=== PATIENT | male | born 1960 | race Caucasian/White ===

== ENCOUNTER 2022-06-13 14:36 | Outpatient (CLI) | payer OTHER | END 2022-06-13 14:37 | disposition home or self-care (01) | LOC: CSHMRI 14:36 | PROVIDERS: ATTEND Physician Assistant | DX: M43.12 Spondylolisthesis, cervical region (principal); M50.30 Other cervical disc degeneration, unspecified cervical region; R29.898 Other symptoms and signs involving the musculoskeletal system; M47.12 Other spondylosis with myelopathy, cervical region | CPT/HCPCS: 72141 ==

== ENCOUNTER 2023-03-16 09:54 | Inpatient (IN) | payer OTHER ==
[2023-03-16] MEDS ORDERED: Ondansetron PF 4 MG/2 ML Vial IVP PRN (10:42)
[2023-03-16] MEDS ORDERED: Acetaminophen 325 MG TAB PO PRN (10:42)
[2023-03-16] MEDS ORDERED: Morphine 2 MG/ML VIAL SLOW IVP PRN (10:54)
[2023-03-16 10:59] LABS: #Monocytes 1.8 10x3/uL (0.0-1.1); %Basophils 0.3 % (0.0-2.0); %Eosinophils 0.2 % (0.0-6.0); %Lymphocytes 12.8 % (18.0-47.0); %Monocytes 17.5 % (0.0-10.0); %Neutrophils 67.4 % (40.0-75.0); Hematocrit 33.4 % (38.8-50.0); Hemoglobin 11.9 g/dL (13.5-17.5); Mean Corpuscular HGB CONC 35.6 g/dL (32.0-36.0); Mean Corpuscular Hemoglobin 32.5 pg (27.0-33.0); Mean Corpuscular Volume 91.3 fl (81.2-95.1); Mean Platelet Volume 9.6 fl (7.4-10.4); Platelet Count 278 10x3/uL (150-450); RBC Distribution Width 12.3 % (11.5-14.5); Red Blood Cell (RBC) Count 3.66 10x6/uL (4.32-5.72); White Blood Cell (WBC) Count 10.4 10x3/uL (3.5-10.5)
[2023-03-16 11:12] LABS: ALT (SGPT) 67 U/L (8-55); AST (SGOT) 16 U/L (5-34); Albumin 4.1 g/dL (3.4-4.8); Alkaline Phosphatase 79 U/L (40-110); Anion Gap 38 mmol/L (10-20); Bilirubin, Total 0.3 mg/dL (0.2-1.2); Calc. Creatinine Clearance 0 mL/min (70-130); Chloride 90 mmol/L (98-107); Estimated GFR 3; Globulin 2.5 g/dL (2.4-3.5); Glucose 105 mg/dL (80-115); Magnesium 2.3 mg/dL (1.6-2.6); Potassium 4.8 mmol/L (3.5-5.1); Protein, Total 6.6 g/dL (5.8-8.1); Sodium 132 mmol/L (136-145)
[2023-03-16 11:23] LABS: BUN (Urea Nitrogen) 151 mg/dL (8.4-25.7); Lipase 2118 U/L (8-78)
[2023-03-16 11:24] LABS: Actual Bicarbonate (HCO3v) 9.6 mEq/L (22-28); Calcium, Ionized (venous) 0.84 mmol/L (1.16-1.32); Chloride (VBG) 96 mmol/L (98-106); Hematocrit-VBG 38 % (42.0-52.0); Potassium (VBG) 4.65 mmol/L (3.70-5.30); Puncture Site Other Site; RapidComm Collect By CBN; Sodium 132 mmol/L (133-146); pH (venous) 7.096 (7.32-7.43)
[2023-03-16 11:32] LABS: Calcium 6.5 mg/dL (7.8-10.44); Carbon Dioxide 9 mmol/L (23-31)
[2023-03-16] MEDS ORDERED: Sodium Bicarbonate 150 MEQ, Admixture Fee 1 EACH in Dextrose 5% in Water 1,000 ML IV SCH (12:00)
[2023-03-16 13:41] VITALS: BMI 24.4
[2023-03-16] MEDS ORDERED: FLU VACC QS2023-24(6MOS UP)/PF 60 MCG/0.5 ML SYRINGE IM ONE (14:00)
[2023-03-16] MEDS: Sodium Bicarbonate 150 MEQ, Admixture Fee 1 EACH in Dextrose 5% in Water 1,000 ML IV SCH ×2 (17:09→23:30)
[2023-03-16 18:39] LABS: Creatinine, Urine 135.56 mg/dL (63-166)
[2023-03-16] MEDS: Loperamide HCl 2 MG CAP PO PRN (21:11)
[2023-03-16 22:25] LABS: Potassium, Urine 10.3 mmol/L
[2023-03-17 04:16] LABS: ALT (SGPT) 44 U/L (8-55); AST (SGOT) 13 U/L (5-34); Albumin 3.2 g/dL (3.4-4.8); Alkaline Phosphatase 62 U/L (40-110); Anion Gap 29 mmol/L (10-20); Bilirubin, Total 0.3 mg/dL (0.2-1.2); Calc. Creatinine Clearance 7 mL/min (70-130); Carbon Dioxide 18 mmol/L (23-31); Chloride 93 mmol/L (98-107); Estimated GFR 5; Globulin 2.5 g/dL (2.4-3.5); Glucose 164 mg/dL (80-115); Potassium 3.1 mmol/L (3.5-5.1); Protein, Total 5.7 g/dL (5.8-8.1); Sodium 137 mmol/L (136-145)
[2023-03-17 04:20] LABS: #Monocytes 1.3 10x3/uL (0.0-1.1); #Neutrophils 5.8 10x3/uL (1.5-8.4); %Basophils 0.1 % (0.0-2.0); %Eosinophils 0.1 % (0.0-6.0); %Lymphocytes 9.9 % (18.0-47.0); %Monocytes 16.5 % (0.0-10.0); %Neutrophils 71.7 % (40.0-75.0); BUN (Urea Nitrogen) Greater than 125 mg/dL (8.4-25.7); Calcium 5.9 mg/dL (7.8-10.44); Hematocrit 27.7 % (38.8-50.0); Hemoglobin 10.1 g/dL (13.5-17.5); Mean Corpuscular HGB CONC 36.5 g/dL (32.0-36.0); Mean Corpuscular Hemoglobin 31.9 pg (27.0-33.0); Mean Corpuscular Volume 87.4 fl (81.2-95.1); Platelet Count 215 10x3/uL (150-450); RBC Distribution Width 11.8 % (11.5-14.5); Red Blood Cell (RBC) Count 3.17 10x6/uL (4.32-5.72); White Blood Cell (WBC) Count 8.1 10x3/uL (3.5-10.5)
[2023-03-17] MEDS: Sodium Bicarbonate 150 MEQ, Admixture Fee 1 EACH in Dextrose 5% in Water 1,000 ML IV SCH (06:03)
[2023-03-17] MEDS: Loperamide HCl 2 MG CAP PO PRN ×3 (06:06→16:49)
[2023-03-17 06:31] LABS: Magnesium 1.7 mg/dL (1.6-2.6)
[2023-03-17] MEDS ORDERED: Potassium Chloride 20 MEQ TAB PO SCH ×2 (08:00→11:00)
[2023-03-17] MEDS ORDERED: Calcium Gluc 4.6 MEQ/10 ML (100 MG/ML) SLOW IVP SCH (08:00)
[2023-03-17] MEDS: Sodium Bicarbonate Tab 325 MG TAB PO SCH ×3 (09:20→20:41)
[2023-03-17] MEDS: Sodium Chloride 0.9% 1,000 ML IV SCH ×2 (09:21→16:12)
[2023-03-18 04:04] LABS: Anion Gap 19 mmol/L (10-20); BUN (Urea Nitrogen) 101 mg/dL (8.4-25.7); Calc. Creatinine Clearance 19 mL/min (70-130); Calcium 6.5 mg/dL (7.8-10.44); Carbon Dioxide 26 mmol/L (23-31); Chloride 99 mmol/L (98-107); Estimated GFR 15; Glucose 120 mg/dL (80-115); Magnesium 1.5 mg/dL (1.6-2.6); Sodium 141 mmol/L (136-145)
[2023-03-18] MEDS: Sodium Chloride 0.9% 1,000 ML IV SCH ×3 (06:22→16:15)
[2023-03-18] MEDS ORDERED: Magnesium 2 GM/50 ML(in water) 2 GM in Premix Bag 1 BAG IVPB SCH (06:30)
[2023-03-18] MEDS ORDERED: Potassium Chloride 20 MEQ TAB PO SCH (06:30)
[2023-03-18] MEDS: Calcium Carbonate 500 MG ChewTAB PO SCH ×3 (06:49→17:38)
[2023-03-18] MEDS ORDERED: CALCIUM GLUC 1 GM/NS 50 ML 1 GM in Premix Bag 1 BAG IVPB SCH (07:00)
[2023-03-18] MEDS: Sodium Bicarbonate Tab 325 MG TAB PO SCH (07:50)
[2023-03-18] MEDS: Potassium Chloride 20 MEQ in Premix Bag 1 BAG IVPB SCH ×2 (10:04→13:07)
[2023-03-18] MEDS: Loperamide HCl 2 MG CAP PO PRN (14:55)
[2023-03-19] MEDS: Calcium Carbonate 500 MG ChewTAB PO SCH ×2 (01:37→07:35)
[2023-03-19] MEDS: Sodium Chloride 0.9% 1,000 ML IV SCH (01:37)
[2023-03-19 04:47] LABS: Anion Gap 16 mmol/L (10-20); BUN (Urea Nitrogen) 43 mg/dL (8.4-25.7); Calc. Creatinine Clearance 54 mL/min (70-130); Calcium 7.8 mg/dL (7.8-10.44); Carbon Dioxide 26 mmol/L (23-31); Chloride 106 mmol/L (98-107); Estimated GFR 53; Glucose 120 mg/dL (80-115); Magnesium 1.4 mg/dL (1.6-2.6); Potassium 3.7 mmol/L (3.5-5.1); Sodium 144 mmol/L (136-145)
[2023-03-19 10:32] VITALS: BP 145/73; TEMP 98.5
== END 2023-03-19 11:30 | disposition home or self-care (01) | DRG 682 ==
LOC: CSHERS 09:54 → CSHICU 13:39 → CSHTELE 03-18 19:05
PROVIDERS: ADMIT Family Medicine; ATTEND Internal Medicine
PROC: 4A043R1 Measurement of Venous Saturation, Peripheral, Percutaneous Approach (ICD-10-PCS; principal; 2023-03-16)
DX: N17.9 Acute kidney failure, unspecified (principal); K85.90 Acute pancreatitis without necrosis or infection, unspecified; E87.1 Hypo-osmolality and hyponatremia; E87.20 Acidosis, unspecified; I10 Essential (primary) hypertension; E78.5 Hyperlipidemia, unspecified; Z79.899 Other long term (current) drug therapy; K21.9 Gastro-esophageal reflux disease without esophagitis; Z98.890 Other specified postprocedural states; E87.8 Other disorders of electrolyte and fluid balance, not elsewhere classified; Z87.891 Personal history of nicotine dependence; R19.7 Diarrhea, unspecified; E87.6 Hypokalemia; E83.51 Hypocalcemia; K52.9 Noninfective gastroenteritis and colitis, unspecified
CPT/HCPCS: 36415; 74176; 76770; 80048; 80053; 82436; 82570; 82805; 83605; 83690; 83735; 84133; 84300; 85025; 87324; 87449; 90471; 90686; 93005; 93010; 96365; G0008; J0612; J0613; J3475; J3480; J7050; J7070